=== PATIENT | female | born 1955 | race Caucasian/White ===

== ENCOUNTER 2019-04-03 20:58 | Inpatient (IN) | payer MEDICARE, MEDICAID ==
[~2019-04-03] VITALS: Ht 165.1 cm; Wt 78.0 kg
--- NOTE | 2019-04-03 00:28 | NUR ---
ADMITTED FROM ER VIA BED ORALLY INTUBATED CONNECTED TO VENT W/ SETTINGS OF AC-18, TV-500, FIO2-80%, PEEP-+5 W/ O2 SAT OF 100%.SUCTIONED VIA ETT W/ SMALL MAT OF PINKISH THIN MUCOUS. WITHDRAW TO NOXIOUS STIMULI. ON DOPAMINE DRIP @ 20MCQ/KG/MIN VIA PICC LINE ON NIRU. ON MUCOMYST DRIP @ 67CC/HR. J Carlos MC WAS HERE ,SEEN PT W/ ORDERS. REPOSITIONED PT.
--- NOTE | 2019-04-03 21:00 | NUR ---
Pt bib ra83 for overdose. Pt was found in her car with medicine bottles. Per rescue, may have ingested 90 tabs of ativan and other meds. Dr. Garcia at bedside for MSE. Addendum: 04/03/19 at 2233 by TIFFANY Pt unconscious, unresponsive. BP low 102/40 and 85% saturation on room air, cold extremities, skin color pale
--- NOTE | 2019-04-03 21:10 | NUR ---
CALLED TO ER FOR PT OVERDOSE. PT WAS INTUBATED BY WITH A SIZE 7 ETT, SECURED BY ANCHOR-FAST AT APPROX. 22CM AT THE LIP. VENT SETTINGS OF AC16, VT 500, 100% FIO2. AMBUBAG AT BEDSIDE. VENT ALARMS ON AND AUDIBLE. VENT PLUGGED INTO RED EMERGENCY OUTLET. WILL CONTINUE TO MONITOR PT.
--- NOTE | 2019-04-03 21:13 | NUR ---
Succinylcholine given.
--- NOTE | 2019-04-03 21:14 | NUR ---
Pt intubated by Dr. Garcia.
[2019-04-03] MEDS ORDERED: PROPOFOL 100 ML ONE (21:18)
[2019-04-03] MEDS ORDERED: OMEPRAZOLE 20 MG (21:18)
[2019-04-03] MEDS ORDERED: HYDROCO/APAP TAB 5-325MG (21:18)
[2019-04-03] MEDS ORDERED: NITROFURANTOIN MONOHYDRATE (21:18)
[2019-04-03] MEDS ORDERED: CLINDAMYCIN HCL 300 MG (21:18)
[2019-04-03] MEDS ORDERED: GABAPENTIN 100 MG (21:18)
[2019-04-03] MEDS ORDERED: [UNRECOGNIZED DRUG - OTHER] (21:18)
[2019-04-03] MEDS ORDERED: QUETIAPINE FUMARATE 50 MG (21:18)
[2019-04-03] MEDS ORDERED: AMLODIPINE BESYLATE 5 MG TABS (21:18)
[2019-04-03] MEDS ORDERED: DULOXETINE HYDROCHLORIDE (21:18)
[2019-04-03] MEDS ORDERED: SIMVASTATIN 10 MG TABS (21:18)
[2019-04-03] MEDS ORDERED: LORAZEPAM 1 MG (21:18)
[2019-04-03] MEDS ORDERED: IBUPROFEN 600 MG (21:18)
[2019-04-03] MEDS ORDERED: GABA100C PO (21:24)
[2019-04-03] MEDS ORDERED: DULO30CA2 PO (21:24)
[2019-04-03] MEDS ORDERED: ACET-2154 PO (21:24)
[2019-04-03] MEDS ORDERED: DOCU-141 PO (21:24)
[2019-04-03] MEDS ORDERED: QUET50TA PO (21:24)
[2019-04-03] MEDS ORDERED: AMLO5TAB4 PO (21:24)
[2019-04-03] MEDS ORDERED: MECL25TA3 PO (21:24)
[2019-04-03] MEDS ORDERED: HYDR-4384 PO (21:24)
[2019-04-03] MEDS ORDERED: ETOMIDATE 20 MG/10 ML VIAL IV ONE (21:30)
[2019-04-03] MEDS ORDERED: SUCCINYLCHOLINE CHLORIDE 200 MG/10 ML VIAL IV ONE (21:30)
[2019-04-03] MEDS ORDERED: ACETYLCYSTEINE IV 0 MG in IV DEXTROSE 5% 200 ML IV ONE (21:30)
[2019-04-03] MEDS ORDERED: IV NORMAL SALINE 1000 ML BAG IV ONE ×2 (21:30→22:00)
[2019-04-03] MEDS ORDERED: ACETYLCYSTEINE IV 60 ML IV ONE ×2 (21:43→23:21)
[2019-04-03] MEDS ORDERED: DOPamine IV DRIP 400 MG/250ML 250 ML ONE (21:54)
--- NOTE | 2019-04-03 21:55 | NUR ---
DR ORDERED TO PULL ETT BACK OUT 1-2CM. ETT NOW SECURED WITH ANCHOR-FAST AT 21CM AT THE LIP.
[2019-04-03 22:00] LABS: BASOPHILS # (AUTO) 0.1 K/uL (0.0-8.0); EOSINOPHILS # (AUTO) 0.1 K/uL (0.0-0.7); EOSINOPHILS % (AUTO) 1.6 % (0.0-7.0); HEMATOCRIT 36.9 % (31.2-41.9); HEMOGLOBIN 12.4 g/dL (10.9-14.3); LYMPHOCYTES # (AUTO) 1.1 K/uL (20.0-40.0); MEAN CORPUSCULAR HEMOGLOBIN 33.7 uug (24.7-32.8); MEAN CORPUSCULAR HGB CONC 34 g/dL (32.3-35.6); MEAN CORPUSCULAR VOLUME 100.2 fL (75.5-95.3); MONOCYTES # (AUTO) 0.3 K/uL (2.0-10.0); MONOCYTES % (AUTO) 6.2 % (0.0-11.0); NEUTROPHILS % (AUTO) 71.2 % (38.5-71.5); PLATELET COUNT (AUTO) 218 K/uL (179-408); RED BLOOD CELL COUNT(AUTO) 3.68 MIL/uL (3.63-4.92); WHITE BLOOD COUNT (AUTO) 5.6 K/uL (3.8-11.8)
[2019-04-03] MEDS ORDERED: DOPamine IV DRIP 400 MG/250ML 250 ML IV ONE (22:00)
--- NOTE | 2019-04-03 22:00 | NUR ---
1st loading dose of Acetylcysteine 97013 mg given via IV right central line. BP 30/15, HR65, R18, 100% O2Sat via ET tube.
[2019-04-03 22:04] LABS: CARBON DIOXIDE 25 mmol/L (21-32); CHLORIDE 109 mmol/L (98-107); CREATININE 0.7 mg/dL (0.6-1.3); GLUCOSE 117 mg/dL (74-106); POTASSIUM 3.7 mmol/L (3.5-5.1); UREA NITROGEN, BLOOD 17 mg/dL (7-18)
[2019-04-03 22:06] LABS: ETHANOL < 3 MG/DL (0-0)
[2019-04-03 22:10] LABS: ALANINE AMINOTRANSFERASE 15 U/L (14-59); ALKALINE PHOSPHATASE 57 U/L (50-136); ASPARTATE AMINOTRANSFERASE 18 U/L (15-37); BILIRUBIN,DIRECT 0.1 mg/dL (0.0-0.2); BILIRUBIN,TOTAL 0.4 mg/dL (0.2-1.0); TOTAL PROTEIN, SERUM 6.2 g/dL (6.4-8.2)
[2019-04-03] MEDS ORDERED: CHARCOAL ACTIVATED (WITHOUT SORBITOL) 50 G/240 ML BOTTLE PO ONE (22:15)
[2019-04-03 22:18] LABS: THYROID STIMULATING HORMONE 1.602 mIU/mL (0.358-3.740)
[2019-04-03 22:20] LABS: ACETAMINOPHEN 58.3 ug/mL (10-30)
--- NOTE | 2019-04-03 22:23 | NUR ---
Dopamine IV increased to 15 mcg/min
[2019-04-03] MEDS ORDERED: CHARCOAL ACTIVATED (WITHOUT SORBITOL) 50 G/240 ML BOTTLE ONE (22:25)
[2019-04-03 22:29] LABS: ABG BASE EXCESS -6.4 mmol/L; ABG HCO3 19.8 mmol/L; ABG PH 7.292 (7.350-7.450); ABG PO2 231.3 mmHg (75.0-100.0); ABG SITE LEFT RADIAL; ABG TOTAL HEMOGLOBIN 13.5 G/dL (12.0-16.0); COHb 1.1 % (0.5-1.5); MetHb 0.3 % (0.0-1.5); O2Hb 98.4 % (94.0-97.0); VENT MODE VENT - A/C; VT, ABG 500 mL
[2019-04-03 22:36] LABS: *BILIRUBIN,URIN NEGATIVE (NEGATIVE); *BLOOD, URINE NEGATIVE (NEGATIVE); *CLARITY,URINE CLEAR (CLEAR); *COLOR,URINE YELLOW (YELLOW); *KETONES,URINE TRACE (NEGATIVE); *UROBILINOGEN,URINE 0.2 E.U./dl (NORMAL); LEUKOCYTE ESTERASE ,URINE TRACE (NEGATIVE); NITRITE, URINE NEGATIVE (NEGATIVE); PH,URINE 5.5 (5.0-8.0); UGLUCOSE NEGATIVE (NEGATIVE)
--- NOTE | 2019-04-03 22:36 | NUR ---
EPIC panel call has been placed. Waiting call from Alicia Jean.
--- NOTE | 2019-04-03 22:40 | NUR ---
Pt out of ER for CT.
--- NOTE | 2019-04-03 22:43 | NUR ---
Poison control has been contacted. RINA on the phone.
[2019-04-03 22:46] LABS: *AMPHETAMINE, URINE NEGATIVE (NEGATIVE); *BARBITURATE, URINE NEGATIVE (NEGATIVE); *CANNABINOID, URINE NEGATIVE (NEGATIVE); *COCCAINE, URINE NEGATIVE (NEGATIVE); *OPIATE, URINE POSITIVE (NEGATIVE); *PHENCYCLIDINE SCREEN,URINE NEGATIVE (NEGATIVE)
--- NOTE | 2019-04-03 22:47 | NUR ---
DR ORDERED TO INCREASE VENT RATE TO 18, ADD PEEP OF 5, AND DECREASE O2 TO 80%. PT STAR VENT CHANGES WELL. WILL CONTINUE TO MONITOR
[2019-04-03 22:48] LABS: SQUAMOUS EPITHELIAL CELL,UR MODERATE /HPF (NONE SEEN)
[2019-04-03 22:49] LABS: BACTERIA,URINE FEW /HPF (NONE SEEN)
--- NOTE | 2019-04-03 22:50 | NUR ---
Pt back from CT
[2019-04-03] MEDS ORDERED: CALCIUM GLUCONATE IV 1 GM in IV DEXTROSE 5% 50 ML IV ONE (23:00)
[2019-04-03] MEDS ORDERED: GLUCAGON,HUMAN RECOMBINANT 1 MG VIAL IVP ONE (23:00)
--- NOTE | 2019-04-03 23:00 | NUR ---
1st dose of Acetylcysteine 02124 mg via right central line IV finished.
--- NOTE | 2019-04-03 23:05 | NUR ---
Dr. Garcia on panel call with Alicia Jean ACCESSIBILITY LIFT TECHNICIAN. Patient accepted for admission to CCU, diagnosis: Respiratory failure.
[2019-04-03] MEDS ORDERED: GLUCAGON,HUMAN RECOMBINANT 1 MG VIAL ONE (23:07)
[2019-04-03] MEDS ORDERED: CALCIUM GLUCONATE 1 GM/10 ML VIAL IV ONE (23:07)
[2019-04-03] MEDS ORDERED: ACETAMINOPHEN 650 MG SUPP.RECT RC PRN (23:15)
[2019-04-03] MEDS ORDERED: DOPamine IV DRIP 400 MG/250ML 250 ML IV PRN (23:15)
[2019-04-03] MEDS ORDERED: ONDANSETRON 4 MG/2 ML VIAL IV PRN (23:15)
[2019-04-03] MEDS ORDERED: NOREPINEPHRINE BITARTRATE 8 MG in IV DEXTROSE 5% 500 ML IV PRN (23:15)
--- NOTE | 2019-04-03 23:36 | NUR ---
Administered Acetylcysteine 3825mg over 4 hours via IV to right central line. Pt BP 72/39, 89HR, R18, 100% O2Sat via ET tube.
[2019-04-03] MEDS ORDERED: IV NS 1000 ML 1,000 ML IV PRN (23:45)
--- NOTE | 2019-04-03 23:50 | NUR ---
Report given to Makayla ELECTRICAL INSPECTOR.
--- NOTE | 2019-04-03 23:50 | NUR ---
Increased dopamine to 20mcg/min
[2019-04-04] VITALS (94 sets, daily range): BP systolic 68–143; BP diastolic 43–97
--- NOTE | 2019-04-04 00:28 | NUR ---
ADMITTED FROM ER VIA BED W/ ADM DX OF DRUG OVERDOSE. ORALLY INTUBATED TO VENT W/ SETTINGS OF AC-18, TV-500, FIO2-80%, PEEP-+5 W/ O2 SAT OF 100%. ON DOPAMINE DRIP @ 20MCQ/KG/MIN VIA PICC LINE ON NIRU. ON MUCOMYST DRIP @ 67CC/HR FROM ER. J Carlos MC WAS HERE , SEEN & EVALUATED PT W/ ORDERS. REPOSITIONED PT IN BED. CAESAR CURRY APPLIED T-92.8 RECTALLY.
[2019-04-04] MEDS ORDERED: SODIUM BICARBONATE 8.4% 100 MEQ in IV NS 1000 ML 1,000 ML IV PRN (00:45)
[2019-04-04] MEDS ORDERED: DOPamine IV DRIP 400 MG/250ML 250 ML IV PRN (00:45)
[2019-04-04] MEDS ORDERED: NOREPINEPHRINE BITARTRATE 8 MG in IV DEXTROSE 5% 500 ML IV PRN (00:45)
[2019-04-04] MEDS ORDERED: NOREPINEPHRINE BITARTRATE 4 MG/4 ML VIAL IV ONE (00:57)
[2019-04-04] MEDS: DEXTROSE 5% IV ONE ×2 (01:00→02:00)
[2019-04-04] MEDS: ACETYLCYSTEINE IV ONE ×2 (01:00→02:00)
[2019-04-04] MEDS ORDERED: DEXTROSE 50% 50 ML DISP.SYRIN IV PRN (01:00)
--- NOTE | 2019-04-04 01:00 | NUR ---
NGT ON R NARE INTACT & CLAMPED.
[2019-04-04 01:29] LABS: BILIRUBIN,DIRECT 0.1 mg/dL (0.0-0.2); BILIRUBIN,TOTAL 1.6 mg/dL (0.2-1.0); CREATININE 1.3 mg/dL (0.6-1.3); MAGNESIUM 1.7 mg/dL (1.8-2.4); PHOSPHOROUS 3.8 mg/dL (2.5-4.9); POTASSIUM 3.2 mmol/L (3.5-5.1); TOTAL PROTEIN, SERUM 6.4 g/dL (6.4-8.2)
[2019-04-04] MEDS ORDERED: LORAZEPAM 2 MG/1 ML VIAL IV PRN ×2 (01:30→21:00)
--- NOTE | 2019-04-04 01:30 | NUR ---
Saad MC NOTIFIED OF ACETAMINOPHEN LEVEL DOWN TO 42.9, WANTS TO CONT MUCOMYST MED ORDERED.
[2019-04-04 01:44] LABS: ABG PCO2 33.9 mmHg (35.0-45.0); ABG PH 7.318 (7.350-7.450); ABG PO2 68.6 mmHg (75.0-100.0); ABG SITE RIGHT RADIAL; ABG TOTAL HEMOGLOBIN 15.3 G/dL (12.0-16.0); MetHb 0.3 % (0.0-1.5); O2Hb 91.2 % (94.0-97.0); VENT MODE VENT - A/C; VT, ABG 500 mL
[2019-04-04] MEDS ORDERED: ACETYLCYSTEINE IV ONE ×2 (02:00→06:00)
[2019-04-04] MEDS ORDERED: DEXTROSE 5% IV ONE (02:00)
[2019-04-04] MEDS ORDERED: CEFTRIAXONE 1 G in IV DEXTROSE 5% 50 ML IV SCH (02:00)
[2019-04-04] MEDS ORDERED: PIPERACILLIN/TAZOBACTAM/D5W 3.375 G in PREMIXED 1 EACH IV ONE ×2 (02:00→12:00)
[2019-04-04] MEDS ORDERED: CEFTRIAXONE 1 G VIAL ONE (02:03)
--- NOTE | 2019-04-04 02:03 | NUR ---
INCREASED O2 TO 100% PER MD ORDER, POST ABG.
[2019-04-04] MEDS ORDERED: VANCOMYCIN IV 200 ML ONE (02:04)
[2019-04-04] MEDS ORDERED: SODIUM BICARBONATE 8.4% 50 MEQ/50 ML DISP.SYRIN IV ONE (02:05)
[2019-04-04 02:13] LABS: CREATINE KINASE, TOTAL 131 U/L (26-192)
[2019-04-04] MEDS: SODIUM BICARBONATE 8.4% 100 MEQ in IV NS 1000 ML 1,000 ML IV PRN ×2 (02:29→23:59)
[2019-04-04] MEDS ORDERED: VANCOMYCIN IV 1 G in PREMIXED 0 EACH IV ONE (03:00)
[2019-04-04] MEDS: POTASSIUM CHLORIDE 50 ML IV SCH ×3 (04:40→06:21)
--- NOTE | 2019-04-04 05:00 | NUR ---
repositioned on her side w/ hob elevated. off dopamine drip.
[2019-04-04 05:18] LABS: BASOPHILS % (AUTO) 0.4 % (0.0-2.0); EOSINOPHILS % (AUTO) 0.1 % (0.0-7.0); HEMATOCRIT 47.7 % (31.2-41.9); LYMPHOCYTES # (AUTO) 0.8 K/uL (20.0-40.0); LYMPHOCYTES % (AUTO) 9.8 % (20.5-51.5); MEAN CORPUSCULAR HEMOGLOBIN 33.8 uug (24.7-32.8); MEAN CORPUSCULAR HGB CONC 34 g/dL (32.3-35.6); MEAN CORPUSCULAR VOLUME 100.4 fL (75.5-95.3); MONOCYTES # (AUTO) 0.3 K/uL (2.0-10.0); MONOCYTES % (AUTO) 3.6 % (0.0-11.0); NEUTROPHILS # (AUTO) 7.5 K/uL (1.8-8.9); NEUTROPHILS % (AUTO) 86.1 % (38.5-71.5); PLATELET COUNT (AUTO) 274 K/uL (179-408); RED BLOOD CELL COUNT(AUTO) 4.75 MIL/uL (3.63-4.92); WHITE BLOOD COUNT (AUTO) 8.7 K/uL (3.8-11.8)
[2019-04-04 05:55] LABS: THYROID STIMULATING HORMONE 0.819 mIU/mL (0.358-3.740)
[2019-04-04] MEDS ORDERED: D5W IV ONE (06:00)
[2019-04-04] MEDS ORDERED: PIPERACILLIN/TAZOBACTAM/D5W 3.375 G in PREMIXED 1 EACH IV SCH (06:00)
[2019-04-04] MEDS: BLOOD SUGAR DIAGNOSTIC 1 EACH STRIP VI SCH ×4 (06:19→23:32)
[2019-04-04 06:21] LABS: BILIRUBIN,TOTAL 0.4 mg/dL (0.2-1.0); CREATININE 1.1 mg/dL (0.6-1.3); MAGNESIUM 1.7 mg/dL (1.8-2.4); PHOSPHOROUS 2.1 mg/dL (2.5-4.9); POTASSIUM 3.1 mmol/L (3.5-5.1); TOTAL PROTEIN, SERUM 7.4 g/dL (6.4-8.2)
[2019-04-04] MEDS: INSULIN REGULAR, HUMAN 300 UNIT/3 ML VIAL SQ PRN ×2 (06:28→18:10)
[2019-04-04] MEDS ORDERED: METRONIDAZOLE 500 MG/NS 100ML 100 ML IV ONE (06:40)
[2019-04-04] MEDS: METRONIDAZOLE 500 MG/NS 100ML 500 MG in PREMIXED 1 EACH IV SCH ×2 (06:45→14:22)
[2019-04-04] MEDS ORDERED: ETOMIDATE 20 MG/10 ML VIAL IV ONE (07:00)
[2019-04-04] MEDS ORDERED: SUCCINYLCHOLINE CHLORIDE 200 MG/10 ML VIAL IV ONE (07:00)
--- NOTE | 2019-04-04 07:00 | NUR ---
CRITICAL LACTIC ACID RESULT CALLED FROMLAB 7.2. NOTIFIED DR ZAMORA AND AWAITING FOR A CALL BACK.
[2019-04-04] MEDS: NOREPINEPHRINE BITARTRATE 8 MG in IV DEXTROSE 5% 500 ML IV PRN ×2 (07:20→14:23)
--- NOTE | 2019-04-04 07:30 | NUR ---
RECIEVED PT LYING IN BED, RESPONSIVE ONLY TO DEEP PAINFUL STIMULI. SKIN IS VERY HOT TO TOUCH. TEMP IS 102.8F RECTALLY. HR IS SR IN THE 90'S. MAIN IVF IS NS WITH 2AMPS OF NAHCO3 AT 50ML/HRINFUSING ON HER NIRU. MUCOMYST 5,500MG IN D5W RUNNING AT 64.2ML/HR ORDERED VIA THE RIGHT IV ACCESS G #22 PATENT AND INTACT. LEVOPHED DRIP AT 20MCG/MIN FOR SBP BELOW 90 INFUSING WELL.
--- NOTE | 2019-04-04 08:00 | NUR ---
PT PLACED ON HYPOTHERMIA BLANKET GOAL TEMP OF 97.5F. DR ARORA CALLED BACK AND ORDERED NEW ANTIBIOTICS VANCO AND ZOSYN. PT IS INTUBATED AND CONNECTED ON VENTILATOR SETTING OF AC18, VT 500, PEEP-5., FIO2-100%. LUNGS ARE CLEAR AND O2 SAT OF 99-100%.
[2019-04-04] MEDS ORDERED: ACETAMINOPHEN 650 MG SUPP.RECT RC PRN (08:30)
[2019-04-04] MEDS ORDERED: PANTOPRAZOLE SODIUM 40 MG VIAL IV SCH (09:00)
--- NOTE | 2019-04-04 09:00 | NUR ---
SEEN AND EXAMINED BY DR BENJAMIN WITH NEW ORDERS. ABG DONE AND RESULT SEEN. FIO2 DOWN TO 80% ORDERED.
[2019-04-04 09:14] LABS: ABG BASE EXCESS -7.3 mmol/L; ABG HCO3 16.7 mmol/L; ABG PCO2 30.1 mmHg (35.0-45.0); ABG PH 7.361 (7.350-7.450); ABG PO2 90.2 mmHg (75.0-100.0); ABG SITE LEFT RADIAL; COHb 1.2 % (0.5-1.5); MetHb 0.4 % (0.0-1.5); O2Hb 95.6 % (94.0-97.0); VENT MODE VENT - A/C18; VT, ABG 500 mL
[2019-04-04] MEDS ORDERED: INDOMETHACIN 50 MG SUPP.RECT RC PRN (09:30)
--- NOTE | 2019-04-04 10:00 | NUR ---
CHECKED CVP X1 DR BENJAMIN'S ORDER AND RESULT IS BESSIEWEE 7-9.
[2019-04-04] MEDS ORDERED: IV NORMAL SALINE 500 ML IV ONE (10:15)
[2019-04-04 10:18] LABS: BILIRUBIN,DIRECT 0.1 mg/dL (0.0-0.2); BILIRUBIN,TOTAL 0.3 mg/dL (0.2-1.0); MAGNESIUM 1.5 mg/dL (1.8-2.4); TOTAL PROTEIN, SERUM 6.5 g/dL (6.4-8.2)
[2019-04-04 10:24] LABS: POTASSIUM 2.6 mmol/L (3.5-5.1)
--- NOTE | 2019-04-04 10:30 | NUR ---
BOLUS NS 500ML ONE TIME ORDERED VIA THE LT FOOT G 18 INFUSING WELL.
--- NOTE | 2019-04-04 10:53 | NUR ---
Clinical pharmacy note-Vancomycin dosing per pharmacy Subjective: To start Vancomycin dosing on this patient for suspected infection(admitted for tylenol overdose) Objective: BUN 15 Scr 1.0 WBC 8.7 temp 98.4 Ht 165.1cm Wt 78.925kg Assessment/Plan: Patient had 1 gram in ER today at 0239(first dose) Will continue as 1gram IV every 17hrs(second dose tonight at 1900) and draw trough by 4th dose-not ordered yet- for expected trough around 15. Will monitor daily.
--- NOTE | 2019-04-04 11:00 | NUR ---
NGT INTACT AND CONNECTED TO LOW SUCTION AND DRAINING BLACKISH SECRETIONS FROM THE CHARCOAL MODERATE AMOUNT. NPO. ABDOMENT IS SOFT, NO BM NOTED.
[2019-04-04] MEDS: FAMOTIDINE. 20 MG/2 ML VIAL IV SCH ×2 (12:25→20:00)
[2019-04-04] MEDS: PROPOFOL 100 ML IV PRN (13:12)
[2019-04-04] MEDS ORDERED: MAGNESIUM SULFATE/D5W 100 ML IV SCH (14:00)
[2019-04-04] MEDS: POTASSIUM PHOSPHATE MM 7.5 MMOL in IV DEXTROSE 5% 100 ML IV SCH ×2 (15:31→18:08)
[2019-04-04] MEDS ORDERED: VANCOMYCIN IV 1 G in PREMIXED 0 EACH IV SCH (19:00)
--- NOTE | 2019-04-04 19:00 | NUR ---
received patient in bed, with ET tube and tolerated vent settings. Patient has Levophed drip running and keeping blood pressure within parameters as ordered by MD. Patient also on Mucomyst fluids. Patient on Diprivan drip as well running at 5mcg/kg/min. Patient is able to respond to verbal stimuli, by grasping hands when asked questions about pain. Patient able to move upper and lower extremities. Patient has gibson catheter intact and patent. Patient has NIRU picc line that is patent and intact.
--- NOTE | 2019-04-04 19:00 | NUR ---
PT RECEIVED ON CONTINUOUS VENT AC 18 VT 500 PEEP 5 FIO2 50% ETT 7.0 SECURED AT 21 CM LIPLINE VIA ANCHOR FAST. SUCTION PRN. ETT REPOSITION NOW ON RIGHT SIDE. VENT CHECKED. ALARMS WORKING WELL AND AUDIBLE. AMBU BAG AT BEDSIDE. NO VENT CHANGES MADE AT THIS TIME. WILL CONTINUE TO MONITOR.
[2019-04-04] MEDS: PIPERACILLIN/TAZOBACTAM/D5W 3.375 G in PREMIXED 1 EACH IV SCH (22:02)
[2019-04-04] MEDS: IV NORMAL SALINE 250 ML IV PRN (22:30)
--- NOTE | 2019-04-04 22:41 | NUR ---
poison controlled called [facility], called to follow up on patient. requests to do repeat of AST, ALT, and Tylenol levels after Mucomyst fluid finished. Requests Tylenol to be 0 , and downward trend of AST and ALT. will Notify
[2019-04-04 23:32] LABS: ACETAMINOPHEN 2.7 ug/mL (10-30)
[2019-04-05] VITALS (88 sets, daily range): BP systolic 82–148; BP diastolic 35–95
--- NOTE | 2019-04-05 00:01 | NUR ---
received follow up call back from poison control. dictated lab values results. They said to hold off on Mucomyst and will follow up with lab values in the morning.
[2019-04-05 05:21] LABS: BASOPHILS % (AUTO) 0.4 % (0.0-2.0); EOSINOPHILS # (AUTO) 0.2 K/uL (0.0-0.7); EOSINOPHILS % (AUTO) 1.8 % (0.0-7.0); HEMATOCRIT 36.4 % (31.2-41.9); HEMOGLOBIN 12.4 g/dL (10.9-14.3); LYMPHOCYTES % (AUTO) 9.5 % (20.5-51.5); MEAN CORPUSCULAR HEMOGLOBIN 33.7 uug (24.7-32.8); MEAN CORPUSCULAR HGB CONC 34 g/dL (32.3-35.6); MEAN CORPUSCULAR VOLUME 98.8 fL (75.5-95.3); MONOCYTES # (AUTO) 0.6 K/uL (2.0-10.0); MONOCYTES % (AUTO) 5.6 % (0.0-11.0); NEUTROPHILS # (AUTO) 8.8 K/uL (1.8-8.9); NEUTROPHILS % (AUTO) 82.7 % (38.5-71.5); PLATELET COUNT (AUTO) 177 K/uL (179-408); RED BLOOD CELL COUNT(AUTO) 3.69 MIL/uL (3.63-4.92); WHITE BLOOD COUNT (AUTO) 10.7 K/uL (3.8-11.8)
[2019-04-05 05:52] LABS: BILIRUBIN,TOTAL 0.3 mg/dL (0.2-1.0); CREATININE 0.5 mg/dL (0.6-1.3); MAGNESIUM 1.7 mg/dL (1.8-2.4); PHOSPHOROUS 3.6 mg/dL (2.5-4.9); POTASSIUM 2.9 mmol/L (3.5-5.1); TOTAL PROTEIN, SERUM 5.6 g/dL (6.4-8.2)
[2019-04-05] MEDS: PIPERACILLIN/TAZOBACTAM/D5W 3.375 G in PREMIXED 1 EACH IV SCH ×3 (06:05→21:54)
[2019-04-05 06:09] LABS: ACETAMINOPHEN 2.8 ug/mL (10-30)
[2019-04-05] MEDS: BLOOD SUGAR DIAGNOSTIC 1 EACH STRIP VI SCH ×4 (06:15→23:43)
[2019-04-05] MEDS: POTASSIUM CHLORIDE 50 ML IV SCH ×6 (06:33→14:00)
[2019-04-05] MEDS: PROPOFOL 100 ML IV PRN ×3 (06:57→22:16)
--- NOTE | 2019-04-05 07:30 | NUR ---
RECIEVED LYING IN BED SEDATED ON DIPRIVAN DRIP. RESPONSIVE TO DEEP PAINFUL STIMULI. ON VENTILATOR WITH SAME SETTING AND SATURATING WELL.
--- NOTE | 2019-04-05 08:00 | NUR ---
PT STILL ON LEVOPHED DRIP AT 2MCG/MIN. SBP IS HOLDING WELL.
--- NOTE | 2019-04-05 08:00 | NUR ---
NPO. NGT IS INTACT AND CONNECTED TO LOW SUCTION, DRAIN CHARCOLED DRAIN BLACK COLOR. NO BM NOTED.
[2019-04-05 09:15] LABS: ABG BASE EXCESS -0.3 mmol/L; ABG HCO3 22.4 mmol/L; ABG PCO2 30.9 mmHg (35.0-45.0); ABG PH 7.479 (7.350-7.450); ABG PO2 100.3 mmHg (75.0-100.0); ABG SITE LEFT RADIAL; ABG TOTAL HEMOGLOBIN 12.7 G/dL (12.0-16.0); MetHb 0.1 % (0.0-1.5); O2Hb 97.2 % (94.0-97.0); VENT MODE VENT - A/C; VT, ABG 500 mL
--- NOTE | 2019-04-05 09:30 | NUR ---
CALLED UP DR BENJAMIN WITH ABG RESULT, NO ORDERS MADE.
[2019-04-05] MEDS: FAMOTIDINE. 20 MG/2 ML VIAL IV SCH ×2 (09:40→21:01)
--- NOTE | 2019-04-05 10:30 | NUR ---
SEEN AND EXAMINED BY DR BENJAMIN WITH NEW ORDERS. PT HAS A GOOD URINE OUTPUT.
--- NOTE | 2019-04-05 11:00 | NUR ---
DISCONTINUED NAHCO3 DRIP PER DR BENJAMIN. STARTEED A NEW D5NS AT 80ML/HR. KCL BOLUS FOR REPLACEMENT TOTAL 60MEQ PER ORDER.
[2019-04-05] MEDS: IV D5/ 0.9% NACL 1,000 ML IV PRN (11:52)
[2019-04-05] MEDS ORDERED: VANCOMYCIN IV 1,250 MG in IV DEXTROSE 5% 500 ML IV SCH (12:00)
--- NOTE | 2019-04-05 12:39 | NUR ---
Clinical pharmacy note-Vancomycin dosing per pharmacy Subjective: To continue Vancomycin dosing on this patient for suspected infection (admitted for tylenol overdose- r/o asp pna) Objective: BUN 9 Scr 0.5 WBC 10.7 temp 97.8 Ht 165.1cm Wt 78.925kg Assessment/Plan: Since srcr has decreased, will change dose to 1250 mg IV every 17hrs for predicted vanco trough level of 15 mcg/ml at steady state. 1st dose today at 1200) and draw trough by 4th dose (not ordered yet). Will monitor renal function & adjust the dose if needed. Will monitor daily.
[2019-04-05] MEDS ORDERED: DEXTROSE 10 % IN WATER 250 ML IV ONE ×2 (13:15→13:30)
[2019-04-05] MEDS: MAGNESIUM SULFATE/D5W 100 ML IV SCH ×2 (14:14→16:22)
--- NOTE | 2019-04-05 15:30 | NUR ---
CHECKED BACK GLUCOSE AFTER [id number] GIVEN. ITS 105.
--- NOTE | 2019-04-05 16:30 | NUR ---
PT HAS GOOD AMOUNT OF SOFT BM, BLACK IN COLOR.
--- NOTE | 2019-04-05 18:00 | NUR ---
TOTAL MAGNESIUM IV IS 2GMS GIVEN.
[2019-04-05] MEDS ORDERED: OSMOLITE 1.2 CAL 1,000 ML LIQUID GT PRN (18:30)
--- NOTE | 2019-04-05 19:05 | NUR ---
Pt received in bed, laying semi-Briceño's, unable to communicate - sedated at this time.. Orally intubated, ETT 7.0, approx 21 at lip, in place / secure with ties, no breakdown noted under / around anchor fast.. Continuous mechanical ventilation with vent: Bradshaw, settings: A/C 18, Vt 500, PEEP +5, FiO2 50%, tolerating well at this time, will continue to monitor.. Vent alarms on / audible / functioning normally at this time.. BVM at bedside.. Will continue to monitor..
--- NOTE | 2019-04-05 19:30 | NUR ---
CHARTING DONE FROM 04/05/19 STARTING 729 TO 04/05/19, WAS CHARTED BY HENRI ODEN RN USING BY USER NAME RV.
--- NOTE | 2019-04-05 20:00 | NUR ---
RECEIVED PT ORALLY INTUBATED TO VENT W/ SETTINGS OF AC-18, TV-500, FIO2-50%, PEEP-+5 W/ O2 SAT OF 98%. OPEN HER TO VERBAL STIMULI & FOLLOWS TO SIMPLE COMMAND.ON LEVOPHED DRIP @ 1 MCQ/HR VIA NIRU PICC LINE. ON DIPRIVAN DRIP @ 30MCQ/KG/MIN. IVF D5NS @ 80CC/HR. TEMP-99.9 RECTALLY, COOLING MEASURES APPLIED. SUCTIONED ORALLY & VIA ETT W/ GRAYISH THIN MUCOUS MINIMAL AMT. REPOSITIONED ON HER W/ HOB ELEVATED.
--- NOTE | 2019-04-05 21:07 | NUR ---
CHECKED PLACEMENT & CHECKED RESIDUAL NONE NOTED. STARTED TUBE FDG OF OSMOLITE 1.2 @ 10CC/HR.
--- NOTE | 2019-04-05 22:30 | NUR ---
HS CARE DONE. ORAL CARE DONE. REPOSITIONED W/ HOB ELEVATED.
[2019-04-05] MEDS: NOREPINEPHRINE BITARTRATE 8 MG in IV DEXTROSE 5% 500 ML IV PRN ×3 (23:46)
[2019-04-06] VITALS (59 sets, daily range): BP systolic 107–148; BP diastolic 48–92
--- NOTE | 2019-04-06 02:00 | NUR ---
NGT FDG INCREASED TO 20CC/HR. AFTER RESIDUAL CHECKED NONE NOTED.
--- NOTE | 2019-04-06 04:00 | NUR ---
AM CARE DONE. ORAL CARE DONE. SUCTIONED & REPOSITIONED. CHECKED NGT RESIDUAL NONE NOTED.
[2019-04-06] MEDS: IV D5/ 0.9% NACL 1,000 ML IV PRN ×2 (04:28→18:22)
[2019-04-06 04:49] LABS: BASOPHILS % (AUTO) 0.2 % (0.0-2.0); EOSINOPHILS # (AUTO) 0.4 K/uL (0.0-0.7); EOSINOPHILS % (AUTO) 3.3 % (0.0-7.0); HEMATOCRIT 33.5 % (31.2-41.9); HEMOGLOBIN 11.3 g/dL (10.9-14.3); LYMPHOCYTES # (AUTO) 1.5 K/uL (20.0-40.0); LYMPHOCYTES % (AUTO) 12.7 % (20.5-51.5); MEAN CORPUSCULAR HEMOGLOBIN 33.4 uug (24.7-32.8); MEAN CORPUSCULAR HGB CONC 34 g/dL (32.3-35.6); MEAN CORPUSCULAR VOLUME 99.2 fL (75.5-95.3); MONOCYTES # (AUTO) 0.4 K/uL (2.0-10.0); MONOCYTES % (AUTO) 3.8 % (0.0-11.0); NEUTROPHILS # (AUTO) 9.4 K/uL (1.8-8.9); PLATELET COUNT (AUTO) 175 K/uL (179-408); RED BLOOD CELL COUNT(AUTO) 3.38 MIL/uL (3.63-4.92); WHITE BLOOD COUNT (AUTO) 11.7 K/uL (3.8-11.8)
[2019-04-06 05:27] LABS: ALANINE AMINOTRANSFERASE 13 U/L (14-59); ALKALINE PHOSPHATASE 57 U/L (50-136); ASPARTATE AMINOTRANSFERASE 13 U/L (15-37); BILIRUBIN,TOTAL 0.3 mg/dL (0.2-1.0); CARBON DIOXIDE 29 mmol/L (21-32); CHLORIDE 109 mmol/L (98-107); CREATININE 0.4 mg/dL (0.6-1.3); GLUCOSE 143 mg/dL (74-106); POTASSIUM 3.2 mmol/L (3.5-5.1); TOTAL PROTEIN, SERUM 5.5 g/dL (6.4-8.2); UREA NITROGEN, BLOOD 5 mg/dL (7-18)
[2019-04-06] MEDS: BLOOD SUGAR DIAGNOSTIC 1 EACH STRIP VI SCH ×4 (05:43→23:30)
[2019-04-06] MEDS: PROPOFOL 100 ML IV PRN ×3 (05:57→19:17)
[2019-04-06] MEDS: PIPERACILLIN/TAZOBACTAM/D5W 3.375 G in PREMIXED 1 EACH IV SCH ×3 (05:57→21:00)
--- NOTE | 2019-04-06 06:00 | NUR ---
PT REMAINS SEDATED W/ DIPRIVAN DRIP @ 35MCQ/KG/MIN. REPOSITIONED W/ HOB ELEVATED.
--- NOTE | 2019-04-06 07:00 | NUR ---
RECEIVED PT ON CONTINUOS VENT AC 18 VT 500 PEEP 5 FIO2 50%. VENT CHANGES MADE AT THIS TIME AND PLACED PT ON SIMV 4 VT 500 PS 12 PEEP 5 FIO2 50%. EMMY LOPEZ NOTIFIED AND AWARE OF NEW VENT SETTINGS. VENT CHECKED, ALARMS WORKING WELL AND AUDIBLE. AMBU BAG AT BEDSIDE. PT TOLERATING CURRENT SETTINGS AT THIS TIME. WILL CONTINUE TO MONITOR.
--- NOTE | 2019-04-06 08:00 | NUR ---
Nursing Note: Pt Ventilator settings changed to SIMV 4 VT 500 PS 12 peep 5 FiO2 50%. Pt tolerating well. ET tube in place. NG tube in place. Noted with charcoal colored gastric contents. Pt adequately sedate. No s/s of distress. Bed in low and locked position. Levophed to titrate. will continue to monitor
--- NOTE | 2019-04-06 08:45 | NUR ---
Nursing Note: Sedation vacation done. Pt noted to be able to move all extremities. ROM equal bilaterally. Pulses present bilaterally. PERRLA sluggish. Able to follow commands.
[2019-04-06] MEDS: FAMOTIDINE. 20 MG/2 ML VIAL IV SCH ×2 (08:57→20:50)
--- NOTE | 2019-04-06 09:00 | NUR ---
Nursing Note: Morning ABG done after ventilator setting changed. Pt remains stable. Kept clean and dry. Gore draining clear yellow urine.
[2019-04-06 09:03] LABS: ABG BASE EXCESS 2.6 mmol/L; ABG HCO3 26.2 mmol/L; ABG PCO2 36.9 mmHg (35.0-45.0); ABG PH 7.469 (7.350-7.450); ABG PO2 107.2 mmHg (75.0-100.0); ABG SITE RIGHT RADIAL; COHb 0.7 % (0.5-1.5); MetHb 0.2 % (0.0-1.5); O2Hb 97.5 % (94.0-97.0); VENT MODE VENT - SIMV; VT, ABG 500 mL
--- NOTE | 2019-04-06 09:45 | NUR ---
Nursing Note: Pt noted to be agitated after ABG. Ativan administered and effective.
[2019-04-06] MEDS: POTASSIUM PHOSPHATE MM 5 MMOL in IV DEXTROSE 5% 100 ML IV SCH ×4 (10:23→16:00)
--- NOTE | 2019-04-06 12:00 | NUR ---
Nursing Note: Pt titrated off Levophed. No episodes of hypotension. Pt ventilator settings changed back to AC 14 VT 500 Peep 5 FiO2 50 per dictaphone technician. Pt had large BM. Black and tarry.
[2019-04-06] MEDS: ASPIRIN 81 MG TAB.CHEW PO SCH (12:40)
[2019-04-06] MEDS: MORPHINE SULFATE 2 MG/1 ML DISP.SYRIN IV PRN (13:14)
[2019-04-06] MEDS: ENOXAPARIN SODIUM 30 MG/0.3 ML DISP.SYRIN SUBCUT SCH (13:46)
--- NOTE | 2019-04-06 16:00 | NUR ---
Nursing Note: FIORELLA delivered and placed.
--- NOTE | 2019-04-06 18:00 | NUR ---
Nursing Notes: Pt remains stable on current ventilator settings. Remains at 20cc/hr. noted with small amounts of residual and kept at current rate to increase more gradually. Turned and repositioned every 2 hours. Gore catheter in place draining clear yellow urine. Relayed results of Urine culture to Dr. Schwab . no new orders at this time. Pt remains afebrile.
--- NOTE | 2019-04-06 18:30 | NUR ---
Nursing Note: Pt adequately sedated and restraints removed.
--- NOTE | 2019-04-06 19:05 | NUR ---
received patient in bed. Patient tolerating vent settings. Patient with Diprivan drip running at 30 mcg/kg/min, patient is sedated but responsive to verbal stimuli and light pain. Patient has gibson catheter that is patent and intact.
--- NOTE | 2019-04-06 19:06 | NUR ---
patient received with no mittens/restraints. patient on Diprivan drip. will continue to monitor,.
--- NOTE | 2019-04-06 19:11 | NUR ---
Nursing Note: Spoke to [facility] poison control and gave update
--- NOTE | 2019-04-06 19:45 | NUR ---
Respiratory therapist came to see patient. Patient suctioned and oral care given.
--- NOTE | 2019-04-06 19:45 | NUR ---
Pt received on continuous mechanical ventilation via 7.0 ETT secured at 21cm lip line. Pt is on Bradshaw ventilator with ordered settings of A/C-18, VT-500, PEEP+5, FIO2-50% Pt tolerating vent settings well. SpO2-100% ETT secured via AnchorFast device. Good skin integrity noted to area of application. ETT moved to alternating sides periodically per hospital policy. Suctioned and lavaged as needed. Sxn'd small amounts of thick white secretions. No signs or symptoms of respiratory distress noted. Oral care done. FIO2 decreased to 40%, EMMY De Leon notified. Vent alarm parameters checked, on and audible. HME changed. PPE used. Vent plugged into red emergency outlet. Bag/valve/mask at bedside. Will continue to monitor Pt.
--- NOTE | 2019-04-06 19:50 | NUR ---
sedation vacatino: patient restless, grimacing, overriding the vent, RR were increase, starting to reach ET tube. Does not follow commands. increase Diprivan drip per protocol.
[2019-04-06] MEDS: Z GUARD REMEDY PASTE 57 GM TUBE TOP SCH (20:50)
[2019-04-07] VITALS (23 sets, daily range): BP systolic 96–150; BP diastolic 55–89
[2019-04-07 04:50] LABS: BASOPHILS % (AUTO) 0.4 % (0.0-2.0); EOSINOPHILS # (AUTO) 0.5 K/uL (0.0-0.7); EOSINOPHILS % (AUTO) 6.5 % (0.0-7.0); HEMATOCRIT 30.6 % (31.2-41.9); HEMOGLOBIN 10.5 g/dL (10.9-14.3); LYMPHOCYTES # (AUTO) 0.9 K/uL (20.0-40.0); LYMPHOCYTES % (AUTO) 13.1 % (20.5-51.5); MEAN CORPUSCULAR HEMOGLOBIN 34.1 uug (24.7-32.8); MEAN CORPUSCULAR HGB CONC 34 g/dL (32.3-35.6); MEAN CORPUSCULAR VOLUME 99.3 fL (75.5-95.3); MONOCYTES # (AUTO) 0.4 K/uL (2.0-10.0); MONOCYTES % (AUTO) 5.4 % (0.0-11.0); NEUTROPHILS # (AUTO) 5.3 K/uL (1.8-8.9); NEUTROPHILS % (AUTO) 74.6 % (38.5-71.5); PLATELET COUNT (AUTO) 134 K/uL (179-408); RED BLOOD CELL COUNT(AUTO) 3.09 MIL/uL (3.63-4.92); WHITE BLOOD COUNT (AUTO) 7.1 K/uL (3.8-11.8)
[2019-04-07 05:00] LABS: CREATININE 0.5 mg/dL (0.6-1.3); MAGNESIUM 1.8 mg/dL (1.8-2.4); PHOSPHOROUS 3.2 mg/dL (2.5-4.9); POTASSIUM 3.1 mmol/L (3.5-5.1)
[2019-04-07] MEDS: PROPOFOL 100 ML IV PRN ×2 (06:23)
[2019-04-07] MEDS: BLOOD SUGAR DIAGNOSTIC 1 EACH STRIP VI SCH ×3 (06:23→18:09)
[2019-04-07] MEDS: PIPERACILLIN/TAZOBACTAM/D5W 3.375 G in PREMIXED 1 EACH IV SCH ×3 (06:29→21:30)
[2019-04-07] MEDS: INSULIN REGULAR, HUMAN 300 UNIT/3 ML VIAL SQ PRN (06:32)
[2019-04-07] MEDS: IV D5/ 0.9% NACL 1,000 ML IV PRN (06:39)
--- NOTE | 2019-04-07 08:00 | NUR ---
Nursing Note: Sedation turned off per auto tech for weaning trial. Placed on CPAP by RT.
[2019-04-07] MEDS: ASPIRIN 81 MG TAB.CHEW PO SCH (08:01)
[2019-04-07] MEDS: FAMOTIDINE. 20 MG/2 ML VIAL IV SCH ×2 (08:01→20:13)
[2019-04-07] MEDS: ENOXAPARIN SODIUM 30 MG/0.3 ML DISP.SYRIN SUBCUT SCH (08:02)
--- NOTE | 2019-04-07 08:10 | NUR ---
PT RECEIVED ON CMV WITH 7 ETT SECURED AT 21 CM AT LIP. PT APPEARS COMFORTABLE TOLERATING CURRENT VENT SETTINGS FIN WITH NO DISTRESS. VENT ALARMS SET AND AUDIBLE.
--- NOTE | 2019-04-07 08:39 | NUR ---
PER DR ESPINAL, SEDATION TURNED OFF AND PT PLACED ON CPAP WITH PSV 8. PT APPEARS TO BE TO BE TOLERATING CPAP FINE. ABG TO BE DONE AFTER 30 MIN
[2019-04-07] MEDS: Z GUARD REMEDY PASTE 57 GM TUBE TOP SCH ×2 (09:12→20:23)
[2019-04-07 09:20] LABS: ABG BASE EXCESS 2.6 mmol/L; ABG HCO3 26.8 mmol/L; ABG PCO2 39.7 mmHg (35.0-45.0); ABG PH 7.447 (7.350-7.450); ABG PO2 84.5 mmHg (75.0-100.0); ABG SITE RIGHT RADIAL; ABG TOTAL HEMOGLOBIN 11.7 G/dL (12.0-16.0); COHb 0.8 % (0.5-1.5); CPAP,BG 8 cmH20; MetHb 0.2 % (0.0-1.5); O2Hb 95.7 % (94.0-97.0); VENT MODE CPAP
--- NOTE | 2019-04-07 09:25 | NUR ---
Nursing Note: Results of ABG relayed to Dr. Meléndez. Awaiting new orders
--- NOTE | 2019-04-07 09:32 | NUR ---
Nursing Note: Pt successfully extubated. VS 143/84 HR 72 RR 20 O2 sat 98%. No complications or s/s of aspiration noted.
--- NOTE | 2019-04-07 09:36 | NUR ---
PER DR ESPINAL, PT SUCCESSFULLY EXTUBATED WITHOUT ANY COMPLICATION. PT PLACED ON 2 LPM NASAL CANULA AND APPEARS COMFORTABLE.
--- NOTE | 2019-04-07 10:00 | NUR ---
Nursing Note: Hold GT feeding per relationship specialist after extubation.
--- NOTE | 2019-04-07 11:55 | NUR ---
Nursing Note: Seen and evaluated by Dr. Bry Nash. Updated MD on patient. Awaiting orders
[2019-04-07] MEDS: POTASSIUM CHLORIDE 50 ML IV SCH ×4 (12:19→15:30)
--- NOTE | 2019-04-07 12:40 | NUR ---
Nursing Note: NG tube removed per Dr. Londono. Pt refused to have other NG tube placed. New order for speech evaluation. D/C Osmolite. 1.2
--- NOTE | 2019-04-07 14:01 | NUR ---
Nursing Note: Seen and evaluated by Crisis team. Pt placed on hold.
--- NOTE | 2019-04-07 16:43 | NUR ---
Nursing Note: Seen and Evaluated by Dr. Lozano.
[2019-04-07] MEDS ORDERED: OLANZAPINE 2.5 MG TABLET PO PRN (17:45)
--- NOTE | 2019-04-07 18:00 | NUR ---
Nursing Note: Pt seen and evaluated by [facility] P[facility]. IV fluids discontinued.
[2019-04-07] MEDS: risperiDONE-M 0.5 MG TAB.RAPDIS PO SCH (18:18)
--- NOTE | 2019-04-07 19:00 | NUR ---
received patient in bed on 2l Nasal canula. Patient complaining of generalize pain rating at a 10, on a scale from 0-10. Patient has bowel movement and was changed and cleansed. Skin care was provided. Patient alert to verbal response. Patient is a bit confused and lethargic. Catheter care provided. PICC line intact and patent. Respiratory preparing for ABG blood draw. patient is tachypneic with shallow respiration and saturating at 100%.
--- NOTE | 2019-04-07 19:03 | NUR ---
Nursing Note: Notified Dr. Bry Monique of tachypnea. New order for ABG stat
[2019-04-07] MEDS: MORPHINE SULFATE 2 MG/1 ML DISP.SYRIN IV PRN (20:12)
--- NOTE | 2019-04-07 20:43 | NUR ---
Called [facility] to follow up with ABGs order. RT not able to obtain values due to malfunctioning of machine and need for recalibrating. Waiting for call.
--- NOTE | 2019-04-07 20:50 | NUR ---
Bry Lisa MD returned call in regards to patients ABG. He is aware of malfunction of machine. He is aware that the patient is still tachypnis with RR 30 , but still saturating at 98%. Will continue to monitor closely.
[2019-04-07] MEDS: IV NORMAL SALINE 250 ML IV PRN (21:33)
--- NOTE | 2019-04-07 22:44 | NUR ---
Logan, from poison control called for follow up on patient. He will follow up again tomorrow in the afternoon.
[2019-04-08] VITALS (12 sets, daily range): BP systolic 98–142; BP diastolic 45–79
[2019-04-08] MEDS: BLOOD SUGAR DIAGNOSTIC 1 EACH STRIP VI SCH ×5 (00:01→23:38)
[2019-04-08 05:05] LABS: CARBON DIOXIDE 27 mmol/L (21-32); CHLORIDE 110 mmol/L (98-107); CREATININE 0.4 mg/dL (0.6-1.3); GLUCOSE 89 mg/dL (74-106); POTASSIUM 2.9 mmol/L (3.5-5.1); UREA NITROGEN, BLOOD 4 mg/dL (7-18)
[2019-04-08 05:10] LABS: MAGNESIUM 1.7 mg/dL (1.8-2.4); PHOSPHOROUS 3.5 mg/dL (2.5-4.9)
[2019-04-08 05:17] LABS: BASOPHILS % (AUTO) 0.4 % (0.0-2.0); EOSINOPHILS # (AUTO) 0.3 K/uL (0.0-0.7); EOSINOPHILS % (AUTO) 4.7 % (0.0-7.0); HEMATOCRIT 31.4 % (31.2-41.9); HEMOGLOBIN 10.7 g/dL (10.9-14.3); LYMPHOCYTES # (AUTO) 1.2 K/uL (20.0-40.0); LYMPHOCYTES % (AUTO) 17.1 % (20.5-51.5); MEAN CORPUSCULAR HEMOGLOBIN 33.7 uug (24.7-32.8); MEAN CORPUSCULAR HGB CONC 34 g/dL (32.3-35.6); MEAN CORPUSCULAR VOLUME 98.9 fL (75.5-95.3); MONOCYTES # (AUTO) 0.6 K/uL (2.0-10.0); MONOCYTES % (AUTO) 8.9 % (0.0-11.0); NEUTROPHILS % (AUTO) 68.9 % (38.5-71.5); PLATELET COUNT (AUTO) 151 K/uL (179-408); RED BLOOD CELL COUNT(AUTO) 3.18 MIL/uL (3.63-4.92); WHITE BLOOD COUNT (AUTO) 7.2 K/uL (3.8-11.8)
[2019-04-08] MEDS: PIPERACILLIN/TAZOBACTAM/D5W 3.375 G in PREMIXED 1 EACH IV SCH ×3 (05:31→21:26)
[2019-04-08] MEDS ORDERED: MAGNESIUM SULFATE 2 GM in IV DEXTROSE 5% 100 ML IV ONE (06:15)
--- NOTE | 2019-04-08 06:19 | NUR ---
spoke to Dr. Puente about patients critical lab values : Potassium - 2.9 and magnesium 1.7. New orders have been ordered for replacement.
[2019-04-08] MEDS: POTASSIUM CHLORIDE 50 ML IV SCH ×6 (06:36→13:37)
--- NOTE | 2019-04-08 07:30 | NUR ---
RECEIVED PT LYING IN BED, AWAKE, ALERT AND ORIENTED TO HER NAME AND PLACE BUT CONFUSE AND FORGETFUL. FOLLOWS SIMPLE COMMANDS. SPEECH IS CLEAR. PT HAS DIFFICULTY LIFTING HER LEFT SHOULDER BECAUSE OF POST SURGICAL HX IN THAT SITE. SR-ST NO ECTOPIES. PICC LINE SITE ON THE RIGHT UPPER ARM CLEAN AND INTACT. NO APPARENT RESPIRATORY DISTRESS NOTED. O2 ON 2L NC, SATURATING AT 994-98%. LUNGS ARE CLEAR.
[2019-04-08] MEDS: MAGNESIUM SULFATE/D5W 100 ML IV SCH ×2 (07:57→09:19)
[2019-04-08] MEDS: ASPIRIN 81 MG TAB.CHEW PO SCH (09:19)
[2019-04-08] MEDS: FAMOTIDINE. 20 MG/2 ML VIAL IV SCH ×2 (09:19→20:26)
[2019-04-08] MEDS: risperiDONE-M 0.5 MG TAB.RAPDIS PO SCH ×3 (09:20→16:39)
--- NOTE | 2019-04-08 09:30 | NUR ---
SEEN AND EXAMINED BY DR ESPINAL, NO ORDERS MADE.
[2019-04-08] MEDS: Z GUARD REMEDY PASTE 57 GM TUBE TOP SCH ×2 (09:39→20:26)
[2019-04-08 10:03] LABS: ABG BASE EXCESS 1.4 mmol/L; ABG HCO3 24.3 mmol/L; ABG PCO2 32.8 mmHg (35.0-45.0); ABG PH 7.488 (7.350-7.450); ABG PO2 78.7 mmHg (75.0-100.0); ABG SITE RIGHT RADIAL; ABG TOTAL HEMOGLOBIN 12.1 G/dL (12.0-16.0); COHb 1.6 % (0.5-1.5); MetHb 0.2 % (0.0-1.5); O2Hb 94.4 % (94.0-97.0); VENT MODE Nasal Cannula
--- NOTE | 2019-04-08 10:30 | NUR ---
SEEN AND EXAMINED BY DR FOX WITH NEW ORDERS TO DOWNGRADE PT TO MEDSURG. MRI ASSISTANT MADE AWARE.
--- NOTE | 2019-04-08 10:40 | NUR ---
PT IS DOWNGRADED TO MEDSURG PER DR FOX AND SHIPPING HAND IS NOTIFIED.
--- NOTE | 2019-04-08 11:30 | NUR ---
SEEN AND EXAMINED BY DR RICKETTS WITH NEW ORDERS. PT IS STILL VERY LABILE IN HER MOODS. LAUGHING AND CRYING INTERMITTENTLY.
--- NOTE | 2019-04-08 13:30 | NUR ---
SEEN AND ASSISTED BY PT UP OOB, ABLE TO MAKEA SHORT STEP BUT STILL FEELING DIZZY. TOLERATED THE SHORT ACTIVITY.
[2019-04-08] MEDS: MORPHINE SULFATE 2 MG/1 ML DISP.SYRIN IV PRN ×2 (14:38→23:01)
--- NOTE | 2019-04-08 17:00 | NUR ---
PT ABLE TO EAT ABOUT 75% OF HER DINNER AND TOLERATED WELL.
--- NOTE | 2019-04-08 18:30 | NUR ---
PT IS TRANSFERRED TO [facility] BED B VIA BED. CONDITION IS STABLE.
--- NOTE | 2019-04-08 20:00 | NUR ---
Report received. Patient admitted 04/03/19 multiple drug OD. On 5150; sitter at bedside. NAD noted. Denies SI but doesn't remember why she overdosed. Assessment completed. Double lumen PICC line to NIRU; ports flush well, no resistance. Dressing dry and intact. Turned and repositioned. Patient guarding L shoulder area; with pain when arm is lifted up. Claims she fell and hurt her shoulder. Affected area is tender and swollen. am RN reports the same assessment. Will refer to . Addendum: 04/08/19 at 1958 by ANAID PARTIDA RN Amended: Links added.
--- NOTE | 2019-04-08 22:55 | NUR ---
Spoke to Nery Hester NP re: patient's L shoulder pain and tenderness. Order received.
[2019-04-09] VITALS: BP 144/65
[2019-04-09 04:00] VITALS: BP 136/75
[2019-04-09] MEDS: PIPERACILLIN/TAZOBACTAM/D5W 3.375 G in PREMIXED 1 EACH IV SCH ×3 (05:19→21:53)
[2019-04-09] MEDS: BLOOD SUGAR DIAGNOSTIC 1 EACH STRIP VI SCH ×3 (05:29→17:41)
[2019-04-09] MEDS: MORPHINE SULFATE 2 MG/1 ML DISP.SYRIN IV PRN ×2 (05:38→21:54)
--- NOTE | 2019-04-09 07:00 | NUR ---
PATIENT IN BED AOX3 FORGETFUL AT TIMES. RT. PICC LINE [address] WITH RED LUMEN NO BLOOD RETURN AND UNABLE TO FLUSH. THE SECOND LUMEN BLOOD RETURN NOTED AND FLUSHING WELL. TAN CATH. IN PLACE WITH CLEAR /YELLOW URIN. PATIENT DENIES PAIN OR DISCOMFORT AT THIS TIME. FALL/SAFETY PRECAUTIONS IN PLACE. BED IN LOW POSITION AND LOCKED. CALL LIGHT IN REACH. WILL CONTINUE TO MONITOR.
[2019-04-09 07:01] LABS: BILIRUBIN,TOTAL 0.9 mg/dL (0.2-1.0); CREATININE 0.6 mg/dL (0.6-1.3); POTASSIUM 3.2 mmol/L (3.5-5.1); TOTAL PROTEIN, SERUM 6.9 g/dL (6.4-8.2)
[2019-04-09] MEDS ORDERED: POTASSIUM CHLORIDE 20 MEQ POWDER PACKET PO ONE (07:15)
--- NOTE | 2019-04-09 07:24 | NUR ---
Patient slept intermittently throughout the shift. No distress noted.No complaints made. Denies SI. still with sitter at bedside for safety. Turned and repositioned. Attended all needs. Ensured safety and comfort. No other untoward events noted.
[2019-04-09 07:33] VITALS: BP 118/62
[2019-04-09] MEDS: FAMOTIDINE. 20 MG/2 ML VIAL IV SCH (08:12)
[2019-04-09] MEDS: risperiDONE-M 0.5 MG TAB.RAPDIS PO SCH ×3 (08:13→17:41)
[2019-04-09] MEDS: ASPIRIN 81 MG TAB.CHEW PO SCH (08:13)
[2019-04-09] MEDS: Z GUARD REMEDY PASTE 57 GM TUBE TOP SCH ×2 (08:14→21:41)
[2019-04-09 09:19] LABS: ABG BASE EXCESS 0.2 mmol/L; ABG HCO3 22.4 mmol/L; ABG PCO2 29.4 mmHg (35.0-45.0); ABG PO2 72.9 mmHg (75.0-100.0); ABG SITE RIGHT RADIAL; ABG TOTAL HEMOGLOBIN 12.9 G/dL (12.0-16.0); MetHb 0.2 % (0.0-1.5); O2Hb 93.7 % (94.0-97.0); VENT MODE Nasal Cannula
[2019-04-09 12:00] VITALS: BP 126/85
[2019-04-09 15:39] VITALS: BP 139/84
[2019-04-09] MEDS: DIVALPROEX 125 MG TABLET.DR PO SCH (17:41)
[2019-04-09] MEDS: INSULIN REGULAR, HUMAN 300 UNIT/3 ML VIAL SQ PRN (17:52)
--- NOTE | 2019-04-09 17:58 | NUR ---
PATIENT AOX3 FORGETFUL AT TIMES.1:1 SITTER AT BEDSIDE. PATIENT DENIES PAIN OR DISCOMFORT THROUGHOUT THE SHIFT. IV PICC LINE IN PLACE. COMPLIANT WITH ALL CARE. VITAL SIGNS STABLE THROUGHOUT THE SHIFT. SAFETY AND FALL PREVENTION IN PLACE. BED IN LOW POSITION AND LOCKED. CALL LIGHT IN REACH. WILL GIVE REPORT TO ONCOMING NURSE.
--- NOTE | 2019-04-09 19:30 | NUR ---
PATIENT RECEIVED LYING IN BED. A/O X2 AND CONFUSED. SAFETY AND COMFORT MEASURES PROVIDED. BED IN LOWEST POSITION. SIDE RAILS UP X2. BED ALARM ON. WILL CONTINUE TO MONITOR.
[2019-04-09 20:00] VITALS: BP 162/85
[2019-04-09] MEDS: FAMOTIDINE 20 MG TABLET PO SCH (21:46)
--- NOTE | 2019-04-09 21:55 | NUR ---
C/O OF PAIN. ADMINISTERED MORPHINE. PATIENT TOLERATED WELL.
[2019-04-10] MEDS: BLOOD SUGAR DIAGNOSTIC 1 EACH STRIP VI SCH ×4 (00:16→17:12)
[2019-04-10 05:22] VITALS: BP 148/83
[2019-04-10] MEDS: PIPERACILLIN/TAZOBACTAM/D5W 3.375 G in PREMIXED 1 EACH IV SCH ×2 (05:23→13:07)
--- NOTE | 2019-04-10 05:38 | NUR ---
PATIENT SLEPT INTERMITTENTLY. PATIENT SHOWS NO SIGNS OF ACUTE DISTRESS. IV INTACT. SAFETY AND COMFORT MEASURES PROVIDED. PRESCRIBED MEDICATIONS GIVEN AND PATIENT TOLERATED WELL. ALL NEEDS ARE MET. WILL ENDORSE ACCORDINGLY TO INCOMING NURSE FOR CONTINUITY OF CARE.
[2019-04-10] MEDS: ASPIRIN 81 MG TAB.CHEW PO SCH (08:32)
[2019-04-10] MEDS: FAMOTIDINE 20 MG TABLET PO SCH (08:32)
[2019-04-10] MEDS: DIVALPROEX 125 MG TABLET.DR PO SCH (08:32)
[2019-04-10] MEDS: risperiDONE-M 0.5 MG TAB.RAPDIS PO SCH ×2 (08:33→17:08)
[2019-04-10] MEDS: Z GUARD REMEDY PASTE 57 GM TUBE TOP SCH (08:36)
[2019-04-10 08:42] VITALS: BP 130/71
[2019-04-10 09:34] LABS: ABG BASE EXCESS 2.2 mmol/L; ABG HCO3 23.9 mmol/L; ABG PCO2 29.1 mmHg (35.0-45.0); ABG PH 7.533 (7.350-7.450); ABG PO2 73.3 mmHg (75.0-100.0); ABG SITE RIGHT RADIAL; COHb 1.1 % (0.5-1.5); MetHb 0.2 % (0.0-1.5); VENT MODE Nasal Cannula
--- NOTE | 2019-04-10 11:02 | NUR ---
Gore catheter removed per Dr.Sam Samayoa. Will monitor patient for urine output. manager production made aware of patient's PICC line occluded on one side.
[2019-04-10 12:00] VITALS: BP 137/76
[2019-04-10] MEDS ORDERED: DIVALPROEX 250 MG TABLET.DR PO SCH ×2 (17:00)
[2019-04-10] MEDS ORDERED: DIVALPROEX 125 MG TABLET.DR PO SCH (17:00)
--- NOTE | 2019-04-10 17:45 | NUR ---
Patient discharged from Med Surg, now GPS overflow.
[2019-04-10] MEDS ORDERED: DIVA125C5 PO (18:32)
[2019-04-10] MEDS ORDERED: [UNRECOGNIZED DRUG - OTHER] TP (18:32)
[2019-04-10] MEDS ORDERED: RISP1TAB27 PO (18:32)
[2019-04-10] MEDS ORDERED: FAMO-132 PO (18:32)
[2019-04-10] MEDS ORDERED: ASPI81TA31 PO (18:32)
[2019-04-10] MEDS ORDERED: OLAN2.5T3 PO (18:32)
[2019-04-10] MEDS ORDERED: BLOO-360 IN (18:47)
== END 2019-04-10 17:22 | DRG 917 ==
LOC: ER 20:59 → CCU 23:56 → MEDSURG3 04-08 18:34
PROVIDERS: ADMIT Registered Nurse; ATTEND Registered Nurse
PROC: 5A1945Z Respiratory Ventilation, 24-96 Consecutive Hours (ICD-10-PCS; principal; 2019-04-03)
PROC: 0BH17EZ Insertion of Endotracheal Airway into Trachea, Via Natural or Artificial Opening (ICD-10-PCS; 2019-04-03)
PROC: 02HV33Z Insertion of Infusion Device into Superior Vena Cava, Percutaneous Approach (ICD-10-PCS; 2019-04-03)
PROC: 0D9670Z Drainage of Stomach with Drainage Device, Via Natural or Artificial Opening (ICD-10-PCS; 2019-04-03)
DX: T40.602A Poisoning by unspecified narcotics, intentional self-harm, initial encounter (principal); J96.01 Acute respiratory failure with hypoxia; A41.9 Sepsis, unspecified organism; I21.A1 Myocardial infarction type 2; J69.0 Pneumonitis due to inhalation of food and vomit; R65.21 Severe sepsis with septic shock; N17.0 Acute kidney failure with tubular necrosis; G92 Toxic encephalopathy; R57.1 Hypovolemic shock; E44.0 Moderate protein-calorie malnutrition; N39.0 Urinary tract infection, site not specified; D68.59 Other primary thrombophilia; E87.2 Acidosis; E87.0 Hyperosmolality and hypernatremia; J98.11 Atelectasis; T39.1X2A Poisoning by 4-Aminophenol derivatives, intentional self-harm, initial encounter; Y92.89 Other specified places as the place of occurrence of the external cause; E66.9 Obesity, unspecified; Z68.28 Body mass index [BMI] 28.0-28.9, adult; G31.9 Degenerative disease of nervous system, unspecified; M50.30 Other cervical disc degeneration, unspecified cervical region; M48.02 Spinal stenosis, cervical region; Z74.09 Other reduced mobility; F31.9 Bipolar disorder, unspecified; E87.6 Hypokalemia; I11.0 Hypertensive heart disease with heart failure; I50.9 Heart failure, unspecified; F41.9 Anxiety disorder, unspecified; K21.9 Gastro-esophageal reflux disease without esophagitis; Z79.899 Other long term (current) drug therapy; Z91.14 Patient's other noncompliance with medication regimen; E78.5 Hyperlipidemia, unspecified; D69.6 Thrombocytopenia, unspecified
CPT/HCPCS: 36415; 36569; 36600; 70030-TC; 70450; 71045; 72125; 73030; 74018; 80307; 83605; 83735; 84100; 84443; 84450; 84460; 85025; 85730; 87040; 87070; 87086; 92526; 92610; 93005; 93307; 94002; 94003; 97110; 97116; 97530; A4217; A4663; G0378; G0480; G0480-TC; J0132; J0330; J0610; J0696; J1265; J1610; J1650; J1815; J2060; J2270; J2543; J3370; J3475; J3480; J3490; J7030; J7040; J7042; J7050; J7060; J7070

== ENCOUNTER 2019-04-10 17:28 | Inpatient (IN) | payer MEDICARE, MEDICAID ==
[~2019-04-10] VITALS: Ht 165.1 cm; Wt 70.3 kg
[~2019-04-10 17:28] MED LIST: ACET-2154 PO; AMLO5TAB4 PO; CLINDAMYCIN HCL 300 MG; DOCU-141 PO; DULO30CA2 PO; GABA100C PO; GABAPENTIN 100 MG; HYDR-4384 PO; IBUPROFEN 600 MG; LORAZEPAM 1 MG; MECL25TA3 PO; NITROFURANTOIN MONOHYDRATE; OMEPRAZOLE 20 MG; QUET50TA PO; SIMVASTATIN 10 MG TABS; [UNRECOGNIZED DRUG - OTHER]
[2019-04-10] MEDS ORDERED: MAGNESIUM HYDROXIDE 30 ML LIQUID UDC PO PRN (18:15)
[2019-04-10] MEDS ORDERED: MAG HYDROX/AL HYDROX/SIMETH 30 ML LIQUID UDC PO PRN (18:15)
--- NOTE | 2019-04-10 18:31 | NUR ---
Patient admitted to [facility], 3rd floor. Will initiate admission and endorse to oncoming shift. Addendum: 04/10/19 at 1856 by RICHIE FERNANDEZ RN Took patient picture, chart put together. Informed friend Catrachita Luke of patient's hold. Per patient, this is the person to notify, will endorse to oncoming shift.
[2019-04-10] MEDS ORDERED: FAMO-132 PO (18:32)
[2019-04-10] MEDS ORDERED: RISP1TAB27 PO (18:32)
[2019-04-10] MEDS ORDERED: ASPI81TA31 PO (18:32)
[2019-04-10] MEDS ORDERED: DIVA125C5 PO (18:32)
[2019-04-10] MEDS ORDERED: OLAN2.5T3 PO (18:32)
[2019-04-10] MEDS ORDERED: [UNRECOGNIZED DRUG - OTHER] TP (18:32)
[2019-04-10] MEDS ORDERED: BLOO-360 IN (18:47)
[2019-04-10 20:30] VITALS: BP 135/77
[2019-04-10] MEDS: TEMAZEPAM 7.5 MG CAPSULE PO PRN (23:58)
--- NOTE | 2019-04-11 | NUR ---
PATIENT AWAKE IN BED. PATIENT GIVEN RESTORIL 7.5MG PO PRN FOR SLEEP. SITTER AT BEDSIDE FOR SAFETY. ALL NEEDS WILL CONTINUE TO MONITOR AND ASSESS.
--- NOTE | 2019-04-11 01:00 | NUR ---
PATIENT ASLEEP IN BED. SLEEPING WELL. SITTER AT BEDSIDE. ALL NEEDS ATTENDED.
--- NOTE | 2019-04-11 07:15 | NUR ---
RECEIVED PATIENT IN BED SLEEPING, NO DISTRESS NOTED. BED IN LOWEST POSITION, SIDE RAIL UP X2, SITTER AT BEDSIDE.
--- NOTE | 2019-04-11 12:54 | NUR ---
PATIENT COMPLAINED OF LEFT KNEE SWELLING AND PAIN, INFORMED MARYANNE HYDE NP, RECEIVED ORDER FOR LEFT KNEE XRAY. ORDERS NOTED AND CARRIED OUT. WILL CONTINUE TO MONITOR CLOSELY
[2019-04-11] MEDS: LORAZEPAM 0.5 MG TABLET PO PRN (13:51)
[2019-04-11 15:45] VITALS: BP 138/75
[2019-04-11] MEDS: risperiDONE 1 MG/ML UDC PO SCH ×2 (15:57→20:27)
[2019-04-11] MEDS: DIVALPROEX 250 MG TABLET.DR PO SCH (17:49)
--- NOTE | 2019-04-11 18:24 | NUR ---
Patient alert and oriented x4, no distress noted throughout shift. Safety and comfort measures provided.Bed in lowest position side rails up x2 and sitter at bedside.
--- NOTE | 2019-04-11 19:20 | NUR ---
Received patient awake and alert in bed, not in any form of distress. Sitter at bedside for safety. Still with oxygen support at 3lpm via nasal cannula, maintained. Patient is calm and cooperative. Complaining of upset stomach at the moment. Bed in low position, locked, side rails up for safety. Will continue to monitor.
[2019-04-11 20:00] VITALS: BP 129/77
[2019-04-11] MEDS ORDERED: DEXTROSE 50% 50 ML DISP.SYRIN IV PRN (21:15)
[2019-04-11] MEDS ORDERED: INSULIN REGULAR, HUMAN 300 UNIT/3 ML VIAL SQ PRN (21:15)
[2019-04-11] MEDS: FAMOTIDINE 20 MG TABLET PO SCH (21:39)
[2019-04-12 04:49] VITALS: BP 107/68
--- NOTE | 2019-04-12 05:41 | NUR ---
Patient slept well throughout the night. No distress noted. Sitter still at bedside for safety. Patient has been calm and cooperative. Denies suicidal ideation. Ensured safety and comfort. Attended all needs.
[2019-04-12 06:51] LABS: BASOPHILS % (AUTO) 0.5 % (0.0-2.0); EOSINOPHILS # (AUTO) 0.6 K/uL (0.0-0.7); EOSINOPHILS % (AUTO) 6.8 % (0.0-7.0); HEMATOCRIT 39.4 % (31.2-41.9); HEMOGLOBIN 13.1 g/dL (10.9-14.3); LYMPHOCYTES # (AUTO) 1.8 K/uL (20.0-40.0); LYMPHOCYTES % (AUTO) 20.4 % (20.5-51.5); MEAN CORPUSCULAR HEMOGLOBIN 33.3 uug (24.7-32.8); MEAN CORPUSCULAR HGB CONC 33 g/dL (32.3-35.6); MEAN CORPUSCULAR VOLUME 99.8 fL (75.5-95.3); MONOCYTES # (AUTO) 0.8 K/uL (2.0-10.0); MONOCYTES % (AUTO) 9.7 % (0.0-11.0); NEUTROPHILS # (AUTO) 5.4 K/uL (1.8-8.9); NEUTROPHILS % (AUTO) 62.6 % (38.5-71.5); PLATELET COUNT (AUTO) 380 K/uL (179-408); RED BLOOD CELL COUNT(AUTO) 3.95 MIL/uL (3.63-4.92); WHITE BLOOD COUNT (AUTO) 8.6 K/uL (3.8-11.8)
[2019-04-12 07:09] LABS: CREATININE 0.6 mg/dL (0.6-1.3); POTASSIUM 3.5 mmol/L (3.5-5.1)
[2019-04-12] MEDS ORDERED: BLOOD SUGAR DIAGNOSTIC 1 EACH STRIP VI SCH (07:30)
[2019-04-12 08:00] VITALS: BP 122/74
--- NOTE | 2019-04-12 08:37 | NUR ---
Received patient, awake, alert x2 resting in bed. With 1:1 sitter at bed side. Patient pleasant upon approach, compliant with care. With O2 at 3lpm. Not in any form of distress. Patient mentioned she is anxious. PRN Ativan given
[2019-04-12] MEDS: risperiDONE 1 MG/ML UDC PO SCH ×2 (08:45→20:06)
[2019-04-12] MEDS: FAMOTIDINE 20 MG TABLET PO SCH ×2 (08:45→20:06)
[2019-04-12] MEDS: DIVALPROEX 250 MG TABLET.DR PO SCH ×2 (08:45→16:21)
[2019-04-12] MEDS: LORAZEPAM 0.5 MG TABLET PO PRN ×2 (08:45→15:46)
[2019-04-12] MEDS: ASPIRIN 81 MG TAB.CHEW PO SCH (08:45)
--- NOTE | 2019-04-12 09:00 | NUR ---
Seen and examined by MARY ANN Hester, SOX ANALYST ordered to discontinue Accu-checks since blood sugar levels were stable. SOX ANALYST also mention he will order Lidocaine patch for arthritic pain over left knee.
[2019-04-12] MEDS: LIDOCAINE 5% PATCH TD SCH ×2 (11:15→13:39)
[2019-04-12 11:33] VITALS: BP 119/72
[2019-04-12 15:54] VITALS: BP 138/67
--- NOTE | 2019-04-12 19:17 | NUR ---
Received patient awake and alert in bed, not in any form of distress. Sitter at bedside for safety. Still with oxygen support at 3lpm via nasal cannula, maintained. Patient is calm and cooperative. Verbalizing desire to speak with Airport Operations Officer and Merchandise Worker, informed patient that they will be back tomorrow morning and that they will be informed that she wants to discuss the discharge plan. Bed in low position, locked, side rails up for safety. Will continue to monitor.
[2019-04-12 19:50] VITALS: BP 143/85
[2019-04-12] MEDS: ACETAMINOPHEN 325 MG TABLET PO PRN (20:06)
[2019-04-12] MEDS: TEMAZEPAM 7.5 MG CAPSULE PO PRN (21:13)
[2019-04-13] MEDS: DIVALPROEX 250 MG TABLET.DR PO SCH ×2 (08:35→17:25)
[2019-04-13] MEDS: ASPIRIN 81 MG TAB.CHEW PO SCH (08:36)
[2019-04-13] MEDS: FAMOTIDINE 20 MG TABLET PO SCH ×2 (08:36→20:38)
[2019-04-13] MEDS: LIDOCAINE 5% PATCH TD SCH ×2 (08:36→08:41)
[2019-04-13] MEDS: risperiDONE 1 MG/ML UDC PO SCH ×2 (08:39→20:39)
[2019-04-13] MEDS: LORAZEPAM 0.5 MG TABLET PO PRN ×2 (08:47→14:14)
[2019-04-13 10:00] VITALS: BP 115/72
[2019-04-13 16:00] VITALS: BP 132/66
--- NOTE | 2019-04-13 16:12 | NUR ---
Initial Discharge Note: Patient is a 63 year old female who currently appears to be homeless. Patient will likely need placement. Communication Engineer will continue to meet with patient and collaborate with patient and MD on a safe and proper discharge.
[2019-04-13] MEDS: ACETAMINOPHEN 325 MG TABLET PO PRN (16:57)
--- NOTE | 2019-04-13 19:20 | NUR ---
Received patient awake and alert in bed, not in any form of distress. Sitter at bedside for safety. PT with oxygen support at 2l via nasal cannula, maintained. Patient is calm and cooperative. Bed in low position, locked, side rails up for safety. Will continue to monitor.
[2019-04-13 20:12] VITALS: BP 121/78
[2019-04-13] MEDS ORDERED: risperiDONE 1 MG TABLET PO ONE (22:00)
--- NOTE | 2019-04-13 22:24 | NUR ---
PT RISPERDAL TABLET FOR 2200H NOT ADMINISTERED BECAUSE PT ALREADY GOTTEN IT AT 2053H PO.CHARGE NURSE AWARE. PT TOLERATED IT WELL. WILL CONTINUE TO MONITOR.
[2019-04-14] MEDS: ACETAMINOPHEN 325 MG TABLET PO PRN ×3 (03:10→18:21)
--- NOTE | 2019-04-14 06:52 | NUR ---
PT SLEPT 6 HOURS. SITTER AT BEDSIDE. PT GIVEN TYLENOL FOR PAIN ON HER BACK. PT SHOWS NO SIGNS OF ACUTE DISTRESS. SAFETY AND COMFORT PROVIDED. WILL ENDORSE ACCORDINGLY TO INCOMING NURSE FOR CONTINUITY OF CARE.
[2019-04-14 07:30] VITALS: BP 111/73
[2019-04-14 07:55] LABS: BASOPHILS # (AUTO) 0.1 K/uL (0.0-8.0); BASOPHILS % (AUTO) 0.6 % (0.0-2.0); EOSINOPHILS # (AUTO) 0.3 K/uL (0.0-0.7); HEMATOCRIT 38.2 % (31.2-41.9); HEMOGLOBIN 12.9 g/dL (10.9-14.3); LYMPHOCYTES # (AUTO) 1.8 K/uL (20.0-40.0); LYMPHOCYTES % (AUTO) 19.3 % (20.5-51.5); MEAN CORPUSCULAR HEMOGLOBIN 33.7 uug (24.7-32.8); MEAN CORPUSCULAR HGB CONC 34 g/dL (32.3-35.6); MEAN CORPUSCULAR VOLUME 99.4 fL (75.5-95.3); MONOCYTES # (AUTO) 0.7 K/uL (2.0-10.0); MONOCYTES % (AUTO) 7.5 % (0.0-11.0); NEUTROPHILS # (AUTO) 6.5 K/uL (1.8-8.9); NEUTROPHILS % (AUTO) 69.6 % (38.5-71.5); PLATELET COUNT (AUTO) 493 K/uL (179-408); RED BLOOD CELL COUNT(AUTO) 3.85 MIL/uL (3.63-4.92); WHITE BLOOD COUNT (AUTO) 9.3 K/uL (3.8-11.8)
[2019-04-14 08:12] LABS: BILIRUBIN,TOTAL 0.3 mg/dL (0.2-1.0); CREATININE 0.6 mg/dL (0.6-1.3); POTASSIUM 4.2 mmol/L (3.5-5.1); TOTAL PROTEIN, SERUM 8.1 g/dL (6.4-8.2)
[2019-04-14] MEDS: risperiDONE 1 MG/ML UDC PO SCH ×2 (08:18→20:13)
[2019-04-14] MEDS: ASPIRIN 81 MG TAB.CHEW PO SCH (08:18)
[2019-04-14] MEDS: LIDOCAINE 5% PATCH TD SCH ×2 (08:18)
[2019-04-14] MEDS: DIVALPROEX 250 MG TABLET.DR PO SCH ×3 (08:18→16:27)
[2019-04-14] MEDS: FAMOTIDINE 20 MG TABLET PO SCH ×2 (08:18→20:14)
[2019-04-14 09:00] LABS: EOSINOPHILS % (MANUAL) 3 % (0-8); LYMPHOCYTES % (MANUAL) 21 % (20-40); MONOCYTES % (MANUAL) 7 % (2-10); NEUTROPHILS % (MANUAL) 69 % (42-75)
--- NOTE | 2019-04-14 10:40 | NUR ---
Patient care will be endorse to POLINA Ariza.
[2019-04-14] MEDS: LORAZEPAM 0.5 MG TABLET PO PRN ×2 (13:26→21:47)
[2019-04-14 15:32] VITALS: BP 116/72
[2019-04-14 19:54] VITALS: BP 115/58
[2019-04-15] MEDS: ACETAMINOPHEN 325 MG TABLET PO PRN ×2 (01:15→18:33)
[2019-04-15 07:30] VITALS: BP 111/64
[2019-04-15] MEDS: DIVALPROEX 250 MG TABLET.DR PO SCH ×3 (09:03→16:12)
[2019-04-15] MEDS: LIDOCAINE 5% PATCH TD SCH ×2 (09:03→09:09)
[2019-04-15] MEDS: ASPIRIN 81 MG TAB.CHEW PO SCH (09:03)
[2019-04-15] MEDS: FAMOTIDINE 20 MG TABLET PO SCH ×2 (09:03→20:18)
[2019-04-15] MEDS: risperiDONE 1 MG/ML UDC PO SCH ×2 (09:06→20:18)
[2019-04-15] MEDS: LORAZEPAM 0.5 MG TABLET PO PRN (09:32)
--- NOTE | 2019-04-15 12:11 | NUR ---
Discharge Planning: Certified Bench Jeweler Technician faxed referral inquire to [facility] [[id number] [place] [address]; ] for tentative discharge on Saturday04/20/19.
[2019-04-15 16:00] VITALS: BP 105/69
--- NOTE | 2019-04-15 16:10 | NUR ---
Discharge Planning: Per Miguel, Room Service Clerk, patient was denied at [facility] due to lack of available SNF days.
--- NOTE | 2019-04-15 16:14 | NUR ---
Discharge Note: Wall Worker faxed referral inquire to Pit Crew Support WorkerShawn at [facility] for tentative discharge on Saturday04/20/19.
--- NOTE | 2019-04-15 18:40 | NUR ---
GPS: RECEIVED PATIENT ASLEEP ON BED, ALERT ORIENTED X3 PATIENT NO SIGN OF ANY DISTRESS, PATIENT COMPLIANT WITH MEDICATION, PATIENT ON LIDOCAINE PATCH A, HOWEVER VERBALIZES PAIN, TYLENOL WAS GIVEN AT 6:30P, WILL CONTINUE MONITOR
[2019-04-15 20:39] VITALS: BP 120/68
[2019-04-16 07:30] VITALS: BP 123/65
[2019-04-16] MEDS: ASPIRIN 81 MG TAB.CHEW PO SCH (08:30)
[2019-04-16] MEDS: DIVALPROEX 250 MG TABLET.DR PO SCH ×3 (08:30→18:13)
[2019-04-16] MEDS: FAMOTIDINE 20 MG TABLET PO SCH ×2 (08:30→20:38)
[2019-04-16] MEDS: risperiDONE 1 MG/ML UDC PO SCH ×2 (08:32→20:38)
[2019-04-16] MEDS: LIDOCAINE 5% PATCH TD SCH ×2 (08:32→08:33)
[2019-04-16] MEDS: ACETAMINOPHEN 325 MG TABLET PO PRN ×2 (11:49→23:48)
--- NOTE | 2019-04-16 13:34 | NUR ---
GPS : RECEIVED PATIENT ALERT ORIENTED AMBULATORY , PATIENT VERBALIZES PAIN WITH PAIN MEDICATION GIVEN ORDERED, PATIENT SEEN TALKING WITH OTHER PATIENT, COMPLIANT WITH MEDICATION WILL CONTINUE MONITOR
[2019-04-16 16:00] VITALS: BP 115/69
--- NOTE | 2019-04-16 17:11 | NUR ---
Discharge Planning note: Skid Man contacted [facility] [[address], [place] [address]; ]. Per Grievance CoordinatorOswaldo, facility is unable to return to facility due to patient's hx of OD.
[2019-04-16 20:27] VITALS: BP 118/75
[2019-04-16] MEDS: LORAZEPAM 0.5 MG TABLET PO PRN (21:25)
[2019-04-16] MEDS: TEMAZEPAM 7.5 MG CAPSULE PO PRN (23:48)
[2019-04-17 07:30] VITALS: BP 111/58
[2019-04-17] MEDS: DIVALPROEX 250 MG TABLET.DR PO SCH ×3 (08:24→16:15)
[2019-04-17] MEDS: ASPIRIN 81 MG TAB.CHEW PO SCH (08:24)
[2019-04-17] MEDS: LIDOCAINE 5% PATCH TD SCH ×2 (08:24→08:26)
[2019-04-17] MEDS: risperiDONE 1 MG/ML UDC PO SCH ×2 (08:24→20:08)
[2019-04-17] MEDS: FAMOTIDINE 20 MG TABLET PO SCH ×2 (08:24→20:08)
[2019-04-17 16:00] VITALS: BP 135/61
[2019-04-17] MEDS: GUAIFENESIN/DEXTROMETHORPHAN 5 ML UDC PO PRN ×2 (17:29→21:44)
[2019-04-17 21:09] VITALS: BP 132/70
[2019-04-17] MEDS: TEMAZEPAM 7.5 MG CAPSULE PO PRN (23:32)
[2019-04-18] MEDS: GUAIFENESIN/DEXTROMETHORPHAN 5 ML UDC PO PRN ×4 (05:07→19:55)
[2019-04-18 07:30] VITALS: BP 122/77
[2019-04-18] MEDS: FAMOTIDINE 20 MG TABLET PO SCH ×2 (08:09→20:00)
[2019-04-18] MEDS: ASPIRIN 81 MG TAB.CHEW PO SCH (08:09)
[2019-04-18] MEDS: DIVALPROEX 250 MG TABLET.DR PO SCH ×3 (08:09→16:00)
[2019-04-18] MEDS: LIDOCAINE 5% PATCH TD SCH ×2 (08:10)
[2019-04-18] MEDS: risperiDONE 1 MG/ML UDC PO SCH ×2 (08:10→20:00)
[2019-04-18 16:00] VITALS: BP 110/73
[2019-04-18] MEDS: LORAZEPAM 0.5 MG TABLET PO PRN (17:32)
[2019-04-18 21:08] VITALS: BP 122/81
[2019-04-19] MEDS: GUAIFENESIN/DEXTROMETHORPHAN 5 ML UDC PO PRN ×4 (04:45→18:10)
[2019-04-19 07:54] LABS: BASOPHILS # (AUTO) 0.1 K/uL (0.0-8.0); BASOPHILS % (AUTO) 1.3 % (0.0-2.0); EOSINOPHILS # (AUTO) 0.3 K/uL (0.0-0.7); EOSINOPHILS % (AUTO) 4.4 % (0.0-7.0); HEMATOCRIT 38.7 % (31.2-41.9); LYMPHOCYTES # (AUTO) 1.7 K/uL (20.0-40.0); LYMPHOCYTES % (AUTO) 24.5 % (20.5-51.5); MEAN CORPUSCULAR HEMOGLOBIN 33.4 uug (24.7-32.8); MEAN CORPUSCULAR HGB CONC 34 g/dL (32.3-35.6); MEAN CORPUSCULAR VOLUME 99.3 fL (75.5-95.3); MONOCYTES # (AUTO) 0.9 K/uL (2.0-10.0); NEUTROPHILS # (AUTO) 4.1 K/uL (1.8-8.9); NEUTROPHILS % (AUTO) 56.8 % (38.5-71.5); PLATELET COUNT (AUTO) 662 K/uL (179-408); WHITE BLOOD COUNT (AUTO) 7.1 K/uL (3.8-11.8)
[2019-04-19 08:03] VITALS: BP 112/69
[2019-04-19 08:11] LABS: BILIRUBIN,TOTAL 0.3 mg/dL (0.2-1.0); CREATININE 0.7 mg/dL (0.6-1.3); POTASSIUM 4.2 mmol/L (3.5-5.1); TOTAL PROTEIN, SERUM 8.3 g/dL (6.4-8.2)
[2019-04-19] MEDS: LIDOCAINE 5% PATCH TD SCH ×2 (08:33)
[2019-04-19] MEDS: ASPIRIN 81 MG TAB.CHEW PO SCH (08:33)
[2019-04-19] MEDS: FAMOTIDINE 20 MG TABLET PO SCH ×2 (08:33→20:19)
[2019-04-19] MEDS: DIVALPROEX 250 MG TABLET.DR PO SCH ×2 (08:33→12:27)
[2019-04-19] MEDS: risperiDONE 1 MG/ML UDC PO SCH ×2 (08:34→20:20)
[2019-04-19 12:31] LABS: BAND % (MANUAL) 5 % (0-10); BASOPHILS % (MANUAL) 1 % (0-2); EOSINOPHILS % (MANUAL) 5 % (0-8); LYMPHOCYTES % (MANUAL) 25 % (20-40); MONOCYTES % (MANUAL) 15 % (2-10); NEUTROPHILS % (MANUAL) 49 % (42-75)
[2019-04-19] MEDS: LORAZEPAM 0.5 MG TABLET PO PRN (14:45)
[2019-04-19 16:49] VITALS: BP 130/75
[2019-04-19] MEDS: ACETAMINOPHEN 325 MG TABLET PO PRN (18:10)
[2019-04-19 20:00] VITALS: BP 123/68
[2019-04-19] MEDS: BENZTROPINE MESYLATE 0.5 MG TABLET PO SCH (20:19)
[2019-04-19] MEDS ORDERED: DIVALPROEX 500 MG TABLET.DR PO SCH (21:00)
--- NOTE | 2019-04-19 21:43 | NUR ---
RECEIVED PT AWAKE, ALERT AND ORIENTEDX4.PT IN NO SIGNS OF ACUTE DISTRESS. DENIES SUICIDAL IDEATION. PLEASANT WHEN APPROACH. SAFETY AND COMFORT PROVIDED. WILL CONTINUE TO MONITOR.
[2019-04-19] MEDS: TEMAZEPAM 7.5 MG CAPSULE PO PRN (22:56)
[2019-04-20] MEDS: GUAIFENESIN/DEXTROMETHORPHAN 5 ML UDC PO PRN ×3 (02:10→14:46)
--- NOTE | 2019-04-20 06:26 | NUR ---
PT SLEPT 4.30 HOURS.PT SHOWS NO SIGNS OF ACUTE DISTRESS. PRESCRIBED MEDICATION GIVEN AND PT TOLERATED IT WELL. PT GIVEN ROBITUSSIN FOR HER COUGH. PT TOLERATED IT WELL.PT GOT RESTORIL AT 2256H. PT STABLE. SAFETY AND COMFORT PROVIDED. ALL NEEDS ARE MET. WILL ENDORSE ACCORDINGLY TO INCOMING NURSE FOR CONTINUITY OF CARE.
[2019-04-20 07:30] VITALS: BP 119/72
[2019-04-20] MEDS: ASPIRIN 81 MG TAB.CHEW PO SCH (08:54)
[2019-04-20] MEDS: DIVALPROEX 250 MG TABLET.DR PO SCH ×2 (08:54→14:46)
[2019-04-20] MEDS: BENZTROPINE MESYLATE 0.5 MG TABLET PO SCH (08:54)
[2019-04-20] MEDS: FAMOTIDINE 20 MG TABLET PO SCH (08:55)
[2019-04-20] MEDS: risperiDONE 1 MG/ML UDC PO SCH (08:55)
[2019-04-20] MEDS: LIDOCAINE 5% PATCH TD SCH ×2 (08:56)
[2019-04-20] MEDS: LORAZEPAM 0.5 MG TABLET PO PRN (11:31)
--- NOTE | 2019-04-20 14:54 | NUR ---
Discharge Note: Patient will be discharged [facility] [address] via taxi. Please arrange taxi transportation at 3:00pm. Spoke with Tabitha at the facility who states they are ready to accept the patient today. Patient is aware and agreeable with discharge plans. Spoke with patients friend, Nena ([phone]) who is also aware and agreeable with discharge plans. Patient will follow-up at [facility] ([facility]al [facility]) [[address] [place] [id number]; ] on Wednesday, April 24, 2019 at 1:00pm. Patient was given outpatient mental health resources to [facility] Crisis Line , Cindy Pretty , and the National Suicide Prevention Lifeline . Patient is homeless. Patient is able to plan for self-care. She is alert and oriented x4, and denies suicidal and homicidal ideation. She has completed and signed the homeless patient waiver form. Patient was provided with the homeless usp packet, which includes a list of emergency shelters, housing resources, drop in centers, and showers/hot meals centers. This also included the Homeless Information Hotline (275)-384-8509 or 161, [employer] for [employer] , and the [facility] (838)-285-3548. A copy of resource directory was signed by patient and added to patients chart
[2019-04-20 15:48] VITALS: BP 131/50
--- NOTE | 2019-04-20 16:30 | NUR ---
GPS: Nursing Notes: Discharge Notes: Patient is awake and responding to her name, cooperative with nursing care, compliant with her medication, following staff directions, denies any SI/HI, denies any AH/VH, denies any pain or discomfort, denies any SOB, discharge to [facility] at [address] [place] [phone] . report given to Tabitha, Correctional Medicine Physician , took all her belongings with her, transported to facility via [employer] taxi. Patient will follow-up at [facility] (Behavioral [facility]) [[address] [place] [address]; ] on Saturday, April 24, 2019 at 1:00pm. Patient was given outpatient mental health resources to [facility] Crisis Line , Cindy Pretty , and the National Suicide Prevention Lifeline . Patient is homeless. Patient is able to plan for self-care. She is alert and oriented x4, and denies suicidal and homicidal ideation. She has completed and signed the homeless patient waiver form. Patient was provided with the homeless long-term packet, which includes a list of emergency shelters, housing resources, drop in centers, and showers/hot meals centers. This also included the Homeless Information Hotline (172)-465-0364 or 211, [employer] for [employer] , and the [facility] (501)-461-7726. A copy of resource directory was signed by patient and added to patients chart
== END 2019-04-20 16:30 | DRG 885 ==
LOC: MEDSURG3 17:28 → GPSOV3 17:45 → GPS 04-13 18:28
PROVIDERS: ADMIT Psychiatry & Neurology Psychosomatic Medicine; ATTEND Nurse Practitioner Acute Care
DX: F25.0 Schizoaffective disorder, bipolar type (principal); E44.0 Moderate protein-calorie malnutrition; K21.9 Gastro-esophageal reflux disease without esophagitis; Z91.5 Personal history of self-harm; T65.92XD Toxic effect of unspecified substance, intentional self-harm, subsequent encounter; Z59.0 Homelessness; F09 Unspecified mental disorder due to known physiological condition; M17.12 Unilateral primary osteoarthritis, left knee; Z68.25 Body mass index [BMI] 25.0-25.9, adult; Z96.612 Presence of left artificial shoulder joint; G89.29 Other chronic pain; M25.462 Effusion, left knee; M25.762 Osteophyte, left knee; Z86.39 Personal history of other endocrine, nutritional and metabolic disease
CPT/HCPCS: 36415; 80164; 85025; 97110; 97116; 97530; J1815; J3490